=== PATIENT | male | born 1990 | race Caucasian/White ===

== ENCOUNTER 2023-02-02 22:03 | Observation (INO) | payer BC, SELFPAY ==
--- NOTE | ~2023-02-02 | CT_ITS ---
EXAMINATION: CT ABDOMEN AND PELVIS WITHOUT CONTRAST CLINICAL INFORMATION: Right flank pain, question stone COMPARISON: None available. TECHNIQUE: Multidetector volumetric imaging was performed from the superior aspect of the liver through the pubic symphysis. Sagittal and coronal reformatted images were obtained on the technologist's workstation. This CT examination was performed using dose optimization techniques as appropriate, variously including the following: *Automated exposure control *Adjustment of mA and/or kV according to patient size (this includes techniques or standardized protocols for targeted exams where dose is matched to indication/reason for exam; i.e. extremities or head) *Use of iterative reconstruction technique DLP: 669 mGy-cm FINDINGS: LUNG BASES: The visualized lung bases are unremarkable. LIVER, GALLBLADDER, AND BILIARY TREE: The liver is normal in size, shape, and attenuation. No focal hepatic lesion or biliary ductal dilatation is identified. Proximal gallstone is noted. No significant gallbladder wall thickening or surrounding inflammation. PANCREAS: Unremarkable. SPLEEN: Unremarkable. ADRENAL GLANDS: Unremarkable. KIDNEYS AND URETERS: No hydronephrosis or obstructing calculus bilaterally. BLADDER: Unremarkable. GASTROINTESTINAL TRACT: The stomach is distended with fluid and debris. No evidence of bowel obstruction or significant wall thickening. The appendix is unremarkable. No free fluid or free air is seen. ABDOMINAL WALL: No significant hernia is appreciated. LYMPH NODES: Normal. VASCULAR: Unremarkable. PELVIC VISCERA: Unremarkable. OSSEOUS STRUCTURES: Disc protrusion noted at L5-S1. CT/CT abdomen pelvis wo IV con IMPRESSION: 1. No hydronephrosis or obstructing calculus. 2. Cholelithiasis. If there is clinical concern for cholecystitis, this would be better assessed with ultrasound.
--- NOTE | ~2023-02-02 | US_ITS ---
EXAMINATION: US ABDOMEN LIMITED CLINICAL INFORMATION: Gallstones, question cholecystitis. COMPARISON: CT 02/02/2023 TECHNIQUE: Real-time imaging of the right upper quadrant abdominal viscera. FINDINGS: PANCREAS: Not visualized, obscured by overlying bowel gas. LIVER: The liver is normal in size. The liver contour is normal. Parenchymal echogenicity is normal. No focal hepatic lesion. There is no intrahepatic biliary duct dilatation seen. GALLBLADDER: There is a nonmobile gallstone in the gallbladder neck measuring up to 1.4 cm. Gallbladder wall thickness is within normal limits. No pericholecystic fluid is seen. Right upper quadrant tenderness was reported during the exam. COMMON BILE DUCT: Normal in caliber measuring 0.3 cm in diameter. RIGHT KIDNEY: No hydronephrosis. No renal calculi or focal parenchymal lesions. The kidney measures 12.2 cm in maximum dimension. FREE FLUID: None. US/US abdomen limited IMPRESSION: Nonmobile gallstone in the gallbladder neck. Right upper quadrant tenderness was reported during the exam. Though no gallbladder wall thickening is seen, early acute cholecystitis remains a possibility. If clinically warranted, assessment for cystic duct patency could be performed with nuclear medicine hepatobiliary scan.
--- NOTE | 2023-02-02 22:19 | ED_ITS ---
HPI - Abdominal Pain General Chief Complaint: Abdominal Pain Stated Complaint: abd pain, difficulty breathing Time Seen by Provider: 02/02/23 22:19 Source: patient Mode of arrival: ambulatory Limitations: no limitations History of Present Illness HPI narrative: Patient with no significant past medical history apparently had fried food earlier today came with severe pain in the right flank and right upper quadrant area for last 2 hours , with nausea patient was very tremulous anxious diaphoretic patient milder pain like this few months ago never been evaluated no fever no chills no urinary complaints no hematuria Related Data Previous Rx's Medication Instructions Recorded ondansetron 4 mg disintegrating 4 mg PO Q6-8H PRN nausea and 02/03/23 tablet vomiting #7 tabs oxycodone 5 mg tablet 5 mg PO Q6H PRN pain #20 tabs 02/03/23 Allergies Allergy/AdvReac Type Severity Reaction Status Date / Time No Known Allergies Allergy Verified 02/02/23 22:21 Review of Systems Review of Systems Yes all other systems are reviewed and are negative [facility] Social History Social History Advance Directives: No Advance Directives Information Provided: Yes Physical Exam ED Vital Signs: Vital Signs - 24 hr 02/02/23 22:43 02/02/23 23:44 Temperature 98.9 F Pulse Rate 76 68 Respiratory Rate 22 H 17 Blood Pressure 148/108 H 123/71 Pulse Oximetry 96 98 Oxygen Delivery Method Room Air Nasal Cannula Oxygen Flow Rate 2 BMI result Body Mass Index 31.5 Appearance: Alert. Oriented X3. Patient has severe distress diaphoretic. Eyes: No pallor or icterus ENT: Pharynx normal. Oral Mucosa moist Neck: Normal inspection. Neck supple. CVS: Normal heart rate and rhythm. Pulses normal. Respiratory: No respiratory distress. Equal air entry bilateral, no wheezing/rales/rhonchi Abdomen: Soft tender right upper quadrant and right flank area Bowel sounds are present, no mass palpable, no CVA tenderness Skin: Skin warm and dry. Normal skin color. Normal skin turgor. Extremities: No lower extremity edema. No calf tenderness Neuro: Oriented X 3. No motor deficit. Medical Decision Making Medical Decision Making MDM Narrative: Patient with cholelithiasis with Clayton sign positive feeling much better at this time sleeping will get ultrasound to rule out acute cholecystitis as patient had a slightly elevated WBC count and lactic acid level likely type B Dr. Velasco will re-evaluate the patient after ultrasound Lab Data MDM Lab Attestation statement: I reviewed the patient's lab results. 02/02/23 22:31 02/02/23 22:31 Labs: Lab Results 02/02/23 02/02/23 02/02/23 Range/Units 22:31 22:31 22:31 WBC 11.3 H (4.8-10.8) X10*3/uL RBC 5.54 (4.60-5.80) X10*6/uL Hgb 15.9 (14.0-18.0) g/dl Hct 46.5 (42.0-52.0) % MCV 83.9 (80.0-98.0) fL MCH 28.7 (27.0-33.0) pg MCHC 34.2 (31.0-36.0) g/dl RDW 12.6 (11.0-16.0) % Plt Count 314 (160-400) X10*3/uL MPV 10.5 (9.4-12.4) fL Immature Gran % (Auto) 0.5 H (0.0-0.4) % Neut % (Auto) 41.6 L (45-73) % Lymph % (Auto) 43.5 H (20-40) % [place] % (Auto) 10.1 (2-11) % Eos % (Auto) 3.6 (0-4) % Baso % (Auto) 0.7 (0-2) % Lymph # (Auto) 4.9 (1.2-4.9) X10*3/uL [place] # (Auto) 1.1 (0.1-1.2) X10*3/uL Eos # (Auto) 0.4 (0.0-0.4) X10*3/uL Baso # (Auto) 0.1 (0.0-0.2) X10*3/uL Abs Immat Gran (auto) 0.06 H (0.00-0.03) X10*3/uL Absolute Neuts (auto) 4.7 (2.0-8.3) x10*3/uL Absolute Nucleated RBC 0.000 (0.0-0.012) X10*3/uL Nucleated RBC % (auto) 0.0 (0.0-0.2) /100WBC Sodium 141 (135-145) mmol/L Potassium 4.1 (3.3-5.1) mmol/L Chloride 104 (96-108) mmol/L Carbon Dioxide 26 (22-29) mmol/L Anion Gap 15 (12-20) BUN 16 (9-16) mg/dL Creatinine 1.05 (0.5-1.4) mg/dL Estim Creat Clear Calc 120.7 Estimated GFR > 60 Random Glucose 112 (60-115) mg/dL Lactic Acid 3.2 H* (0.5-2.0) mmol/L Lactic Acid F/U @ 2Hr (0.5-2.0) mmol/L Calcium 10.1 (8.4-10.2) mg/dL Total Bilirubin 0.5 (0.0-1.0) mg/dL AST 20 (5-37) U/L ALT 31 (0-40) U/L Alkaline Phosphatase 68 (39-117) U/L Total Protein 7.8 (6.5-8.0) g/dL Albumin 4.8 (3.5-5.0) g/dL Lipase 27 (8-78) U/L 02/03/23 Range/Units 00:58 WBC (4.8-10.8) X10*3/uL RBC (4.60-5.80) X10*6/uL Hgb (14.0-18.0) g/dl Hct (42.0-52.0) % MCV (80.0-98.0) fL MCH (27.0-33.0) pg MCHC (31.0-36.0) g/dl RDW (11.0-16.0) % Plt Count (160-400) X10*3/uL MPV (9.4-12.4) fL Immature Gran % (Auto) (0.0-0.4) % Neut % (Auto) (45-73) % Lymph % (Auto) (20-40) % [place] % (Auto) (2-11) % Eos % (Auto) (0-4) % Baso % (Auto) (0-2) % Lymph # (Auto) (1.2-4.9) X10*3/uL [place] # (Auto) (0.1-1.2) X10*3/uL Eos # (Auto) (0.0-0.4) X10*3/uL Baso # (Auto) (0.0-0.2) X10*3/uL Abs Immat Gran (auto) (0.00-0.03) X10*3/uL Absolute Neuts (auto) (2.0-8.3) x10*3/uL Absolute Nucleated RBC (0.0-0.012) X10*3/uL Nucleated RBC % (auto) (0.0-0.2) /100WBC Sodium (135-145) mmol/L Potassium (3.3-5.1) mmol/L Chloride (96-108) mmol/L Carbon Dioxide (22-29) mmol/L Anion Gap (12-20) BUN (9-16) mg/dL Creatinine (0.5-1.4) mg/dL Estim Creat Clear Calc Estimated GFR Random Glucose (60-115) mg/dL Lactic Acid (0.5-2.0) mmol/L Lactic Acid F/U @ 2Hr 1.1 (0.5-2.0) mmol/L Calcium (8.4-10.2) mg/dL Total Bilirubin (0.0-1.0) mg/dL AST (5-37) U/L ALT (0-40) U/L Alkaline Phosphatase (39-117) U/L Total Protein (6.5-8.0) g/dL Albumin (3.5-5.0) g/dL Lipase (8-78) U/L Radiology Impression Discussion of test interpretation with radiology: I have reviewed the r adiologist's reading. Radiologist Impression: CT/CT abdomen pelvis wo IV con IMPRESSION: 1.? No hydronephrosis or obstructing calculus. 2.? Cholelithiasis. If there is clinical concern for cholecystitis, this would be better assessed with ultrasound. Medications Administered Discontinued Medications Generic Name Dose Route Start Last Admin Trade Name Freq PRN Reason Stop Dose Admin Hydromorphone HCl 2 mg 02/02/23 22:51 02/02/23 22:55 Hydromorphone Hcl 2 Mg/Ml Vial IVPUSH 02/02/23 22:52 2 mg ONCE ONE Administration Protocol Sodium Chloride 1,000 mls @ 999 mls/hr 02/02/23 22:20 02/02/23 23:36 Ns IV 02/02/23 23:20 Infused .Q1H1M ONE Infusion Sodium Chloride 1,000 mls @ 999 mls/hr 02/02/23 22:51 02/03/23 00:34 Ns IV 02/02/23 23:51 Infused .Q1H1M ONE Infusion Ketorolac Tromethamine 30 mg 02/02/23 22:20 02/02/23 22:28 Ketorolac Tromethamine 30 Mg/Ml Vial IVPUSH 02/02/23 22:21 30 mg ONCE ONE Administration Morphine Sulfate 4 mg 02/02/23 22:20 02/02/23 22:27 Morphine Sulfate 4 Mg/Ml Cartridge IVPUSH 02/02/23 22:21 4 mg ONCE ONE Administration Protocol Discharge Plan Discharge Clinical Impression: Biliary colic Patient Disposition: Still a Patient Prescriptions: New ondansetron 4 mg tablet,disintegrating 4 mg PO Q6-8H PRN (Reason: nausea and vomiting) Qty: 7 0RF oxycodone 5 mg tablet 5 mg PO Q6H PRN (Reason: pain) Qty: 20 0RF Rx Instructions: Partial Fill upon patient request.
[2023-02-02 22:21] VITALS: BMI 31.5
[2023-02-02] MEDS: Morphine Sulfate 4 MG/ML CARTRIDGE IVPUSH (22:27)
[2023-02-02] MEDS: Ketorolac Tromethamine 30 MG/ML VIAL IVPUSH (22:28)
[2023-02-02] MEDS: 0.9 % Sodium Chloride 1,000 ML 999 ML IV ×2 (22:28→23:26)
[2023-02-02 22:37] LABS: MANUAL DIFF FLAG NO
[2023-02-02 22:43] VITALS: BP 148/108; PULSE 76; RESP 22; TEMP 37.2; O2SAT 96
[2023-02-02 22:47] LABS: Basophils Absolute Auto 0.1 X10*3/uL (0.0-0.2); Basophils Percent Auto 0.7 % (0-2); Eosinophils Absolute Auto 0.4 X10*3/uL (0.0-0.4); Eosinophils Percent Auto 3.6 % (0-4); Hematocrit 46.5 % (42.0-52.0); Hemoglobin 15.9 g/dl (14.0-18.0); Imm Gran Abs Auto 0.06 X10*3/uL (0.00-0.03); Imm Gran Pct Auto 0.5 % (0.0-0.4); Lymphocytes Absolute Auto 4.9 X10*3/uL (1.2-4.9); Lymphocytes Percent Auto 43.5 % (20-40); Mean Corpuscular HGB Conc 34.2 g/dl (31.0-36.0); Mean Corpuscular Hemoglobin 28.7 pg (27.0-33.0); Mean Corpuscular Volume 83.9 fL (80.0-98.0); Mean Platelet Volume 10.5 fL (9.4-12.4); Monocytes Absolute Auto 1.1 X10*3/uL (0.1-1.2); Monocytes Percent Auto 10.1 % (2-11); Neutrophils Absolute Auto 4.7 x10*3/uL (2.0-8.3); Neutrophils Percent Auto 41.6 % (45-73); Platelet Count 314 X10*3/uL (160-400); Red Blood Count 5.54 X10*6/uL (4.60-5.80); Red Cell Distribution Width 12.6 % (11.0-16.0); White Blood Count 11.3 X10*3/uL (4.8-10.8)
[2023-02-02 22:51] LABS: Lactic Acid 3.2 mmol/L (0.5-2.0)
[2023-02-02 22:54] LABS: Alanine Aminotransferase 31 U/L (0-40); Albumin Level 4.8 g/dL (3.5-5.0); Alkaline Phosphatase 68 U/L (39-117); Anion Gap 15 (12-20); Aspartate Amino Transferase 20 U/L (5-37); Bilirubin Total 0.5 mg/dL (0.0-1.0); Blood Urea Nitrogen 16 mg/dL (9-16); Calcium 10.1 mg/dL (8.4-10.2); Carbon Dioxide 26 mmol/L (22-29); Chloride 104 mmol/L (96-108); Creatinine Clr Calc Pharmacy 120.7; Estimated Glomerular Filt Rate > 60; Glucose Random 112 mg/dL (60-115); Lipase 27 U/L (8-78); Potassium 4.1 mmol/L (3.3-5.1); Sodium 141 mmol/L (135-145); Total Protein 7.8 g/dL (6.5-8.0)
[2023-02-02] MEDS: HYDROmorphone HCl 2 MG/ML VIAL IVPUSH (22:55)
--- NOTE | 2023-02-02 23:43 | MHC.EDTECH ---
pt o2 desatted to mid 80s when asleep after being medicated. t/w elevated head of bed and placed patient on 2L o2 nasal cannula. md jean-baptiste aware. rn aware
[2023-02-02 23:44] VITALS: BP 123/71; PULSE 68; RESP 17; O2SAT 98
[2023-02-03] VITALS (11 sets, daily range): BP systolic 110–143; BP diastolic 53–88; PULSE 55–79; RESP 13–20; TEMP 36–36.8; O2SAT 96–98; BMI 33.1
[2023-02-03 00:37] LABS: Reflex Lactate? Lactic Acid Added
[2023-02-03 01:17] LABS: ~Lactic Acid-LAB USE ONLY 1.1 mmol/L (0.5-2.0)
[2023-02-03] MEDS: ondansetron HCL 4 MG/2 ML VIAL IVPUSH (03:46)
[2023-02-03 03:58] LABS: Appearance Urine Clear; Color Urine Yellow; Glucose Urine UA Negative (Negative); Leukocyte Esterase Urine Negative (Negative); Nitrite Urine Negative (Negative); Urine Blood Negative (Negative); Urine Ketones Negative (Negative); Urine Protein Negative (Neg-Trace)
[2023-02-03] MEDS: cefTRIAXone sodium 1 GM in 0.9 % Sodium Chloride 100 ML IV (04:39)
[2023-02-03 05:00] LABS: Lactic Acid 1.8 mmol/L (0.5-2.0)
[2023-02-03 05:00] LABS: COVID-19 Test Negative (Negative); IDNOW Serial# 6674DD1D
[2023-02-03] MEDS: Dextrose 5 % and Lactated Ring 1,000 ML 125 ML IVCONT ×3 (05:08→20:03)
--- NOTE | 2023-02-03 05:16 | PC.NURSE ---
pt sleeping comfortably on stretcher, 97% on RA. call foster within reach. will CTM
--- NOTE | 2023-02-03 06:34 | PC.NURSE ---
Pt came from the Ed at 0615 per stretcher, alert, was feeling no pain before transfer to bed, felt some cramping pain 4/10 mid abd after bending forward, oriented to the unit and use of callbell, safety measures instructed, NPO with ice chips and meds reiterated, IVF maintained.
--- NOTE | 2023-02-03 07:58 | PM.HPGS ---
History of Present Illness History of Present Illness Date of Service: 02/03/23 Chief complaint: acute cholecystitis Narrative: Tashi Bynum is a 32 year old male presenting with complaints of abdominal pain, nausea and vomiting. He reports eating fried mozzarella sticks at around 6 pm yesterday. Several hours later, he developed severe right upper quadrant abdominal pain. He subsequently developed nausea and vomiting which did not relieve the pain. He reports a similar episode 6 years ago; he was admitted but the cause of the pain was never determined. He also reports chronic reflux symptoms which have not improved with various OTC meds. He presented to the ED last evening and was noted to have a mildly elevated WBC. CT and ultrasound revealed an impacted gallstone at the neck of the GB, without evidence of wall thickening or pericholecystic fluid. He was tender over the gallbladder when compressed with the ultrasound probe. Review of Systems Review of Systems: Yes all other systems are reviewed and are negative Constitutional: Constitutional: Denies chills, Denies fever(s), Denies headache(s), Denies poor appetite and Denies weakness ENT: Denies headache(s) Cardiovascular: Cardiovascular: Denies chest pain, Denies irregular heart rhythm, Denies palpitations and Denies dyspnea Respiratory: Respiratory: Denies cough, Denies excessive phlegm production and Denies dyspnea Gastrointestinal: Gastrointestinal: Reports abdominal pain, Denies bloating, Denies change in bowel habits, Denies constipation, Denies heartburn, Denies diarrhea, Reports nausea and Reports vomiting Genitourinary: Genitourinary: Denies difficulty urinating and Denies urinary frequency Musculoskeletal: Musculoskeletal: Denies back pain, Denies muscle weakness and Denies numbness Integumentary/Breasts: Skin/Breast: Denies changing lesions and Denies unusual bruising Neurologic: Denies headache(s), Denies numbness, Denies paresthesias and Denies weakness Psychiatric: Psychiatric: Denies anxiety and Denies depression Endocrine: Endocrine: Denies palpitations Hematologic/Lymphatic: Hematologic/Lymphatic: Denies lymphadenopathy PMFSH Past Medical History Medical History Acid reflux Social History Social History Household Members: Spouse, Family and Children Housing: House Do you presently have visiting nurse or other home services: No Patient Tobacco Use Status: Never used Tobacco Use of substances other than those prescribed or required for medical reasons: No Have you been hit, kicked, punched, or otherwise hurt by someone within the past year? If so, by whom?: No Do you feel safe in your current relationship?: Yes Is there a partner from a previous relationship who is making you feel unsafe now?: No Are you made to feel afraid or neglected: No Advance Directives: No Advance Directives Information Provided: Yes Do you have thoughts of harming others: None Do you have a plan to hurt others: No Plan Recently lost weight without trying: No How much weight loss: Unsure Eating poorly because of decreased appetite: No Nutrition screen score: 2 Nutrition Risks: No Nutritional Risk Poor oral hygiene: No Meds Allergies Allergy/AdvReac Type Severity Reaction Status Date / Time No Known Allergies Allergy Verified 02/02/23 22:21 Active Medications: Current Medications Hydromorphone HCl (Hydromorphone Hcl 0.5 Mg/0.5 Ml Syringe) 0.5 mg IVPUSH Q3H PRN; Protocol PRN Reason: Pain, Severe (Pain Scale 7-10) Dextrose/Lactated Ringer's (D5lr) 1,000 mls @ 125 mls/hr IVCONT .Q8H [facility] Last Admin: 02/03/23 05:08 Dose: 125 mls/hr Ondansetron HCl (Ondansetron Hcl 4 Mg/2 Ml Vial) 4 mg IVPUSH QID PRN PRN Reason: Nausea Pharmacy Consult (Consult Rx Perform Med Rec) 1 each MISCELLANE ONCE PRN PRN Reason: Consult order Sodium Chloride (0.9 % Sodium Chloride Flush 3 Ml Syringe) 3 ml IVFLUSH QSHIFT [facility] Last Admin: 02/03/23 07:40 Dose: Not Given Zolpidem Tartrate (Zolpidem Tartrate 5 Mg Tablet) 5 mg PO BEDTIME PRN PRN Reason: Insomnia Physical Exam Vital Signs: Vital Signs: Last Vital Signs Temp 97 F 02/03/23 06:59 Pulse 58 02/03/23 06:59 Resp 16 02/03/23 06:59 BP 115/58 L 02/03/23 06:59 Pulse Ox 98 02/03/23 06:59 O2 Del Method Room Air 02/03/23 06:59 O2 Flow Rate 2 02/02/23 23:44 BMI result Body Mass Index 33.1 Const: General: cooperative and no acute distress Nutritional Appearance: well nourished Orientation/consciousness: patient oriented x3 Limitations: no limitations HEENT: Head: Yes normocephalic and Yes atraumatic Ears: hearing grossly normal bilaterally Resp: Effort & Inspection: normal respiratory effort, no audible wheezes, no cough and no respiratory distress Cardio: Jugular venous distension: no JVD GI: Inspection: Yes normal to inspection Palpation (GI): Soft to palpation, Tenderness to palpation present (GI) in the RUQ and Clayton's sign positive, no guarding and not rigid Percussion: Yes normal to percussion Auscultation: normal bowel sounds Rectal Exam - Male: Yes deferred Skin: Other: Warm, dry, no rash Neuro: General: patient oriented x3 Extrem: General: Yes no clubbing, cyanosis or edema Results Results Labs: Short CBC 02/02/23 Range/Units 22:31 WBC 11.3 H (4.8-10.8) X10*3/uL Hgb 15.9 (14.0-18.0) g/dl Hct 46.5 (42.0-52.0) % Plt Count 314 (160-400) X10*3/uL BMP 02/02/23 22:31 Sodium 141 Potassium 4.1 Chloride 104 Carbon Dioxide 26 BUN 16 Creatinine 1.05 Calcium 10.1 Liver Function 02/02/23 Range/Units 22:31 Total Bilirubin 0.5 (0.0-1.0) mg/dL AST 20 (5-37) U/L ALT 31 (0-40) U/L Alkaline Phosphatase 68 (39-117) U/L Albumin 4.8 (3.5-5.0) g/dL Urine 02/03/23 Range/Units 03:51 Urine Color Yellow Urine Appearance Clear Urine pH 7.0 (5.0-9.0) Ur Specific [place] 1.020 (1.005-1.025) Urine Protein Negative (Neg-Trace) mg/dL Urine Glucose (UA) Negative (Negative) mg/dL Abdomen CT scan report/results: image reviewed Additional studies: US Abdomen reviewed Assessment and Plan (1) Cholecystitis, acute with cholelithiasis: Status: Acute Plan 32 year old male with an acute onset of abdominal pain in the right upper quadrant, associated with fatty food intact. Patient found to have a mild increase in the WBC and an impacted gallstone in the neck of the gallbladder. On exam, he is tender in the RUQ with a positive Clayton's sign. Findings are suggestive of acute cholecystitis due to cholelithiasis. I recommended a laparoscopic or possible open cholecystectomy. After a discussion of the procedure, alternatives and risks, he consents to the Laparoscopic or possible open cholecystectomy. Time Spent With Patient Time: Total time managing care of this patient today ____ minutes. Quality Stroke Does the patient have a stroke diagnosis?: No VTE Prior VTE?: No VTE Risk Level:: Surgical - moderate VTE Device Contraindication: N/A - Device Ordered VTE Drug Contraindication: Treatment Not Indicated Procedures Date of Service Date of Service: 02/03/23
--- NOTE | 2023-02-03 08:44 | PHA.MEDREC ---
Addendum entered by Breanna Myers RPh 02/03/23 09:38: kenyatta has reviewed med rec Original Note: Pharmacy Consult ? Medication Reconciliation Pharmacy has completed the medication reconciliation. Spoke to patient to confirm meds.
--- NOTE | 2023-02-03 09:16 | HO.ANESPROP2 ---
[facility] Active Problems Active Problems: All Active Problems (Updated 02/03/23 @ 08:07 by Eloy Lennon MD) Cholecystitis, acute with cholelithiasis (Acute) Biliary colic (Acute) Past Medical History Medical History Acid reflux Functional capacity: independent ambulation Family History Family history of problems with anesthesia: No Social History Social History Household Members: Spouse, Family and Children Housing: House Do you presently have visiting nurse or other home services: No Patient Tobacco Use Status: Never used Tobacco Use of substances other than those prescribed or required for medical reasons: No Currently Displaying Signs/Symptoms of Drug Intoxication Withdrawal: No Have you been hit, kicked, punched, or otherwise hurt by someone within the past year? If so, by whom?: No Do you feel safe in your current relationship?: Yes Is there a partner from a previous relationship who is making you feel unsafe now?: No Are you made to feel afraid or neglected: No Advance Directives: No Advance Directives Information Provided: Yes Do you have thoughts of harming others: None Do you have a plan to hurt others: No Plan Recently lost weight without trying: No How much weight loss: Unsure Eating poorly because of decreased appetite: No Nutrition screen score: 2 Nutrition Risks: No Nutritional Risk Poor oral hygiene: No Meds Allergies Allergy/AdvReac Type Severity Reaction Status Date / Time No Known Allergies Allergy Verified 02/02/23 22:21 Active Medications: Current Medications Hydromorphone HCl (Hydromorphone Hcl 0.5 Mg/0.5 Ml Syringe) 0.5 mg IVPUSH Q3H PRN; Protocol PRN Reason: Pain, Severe (Pain Scale 7-10) Dextrose/Lactated Ringer's (D5lr) 1,000 mls @ 125 mls/hr IVCONT .Q8H [facility] Last Admin: 02/03/23 05:08 Dose: 125 mls/hr Cefotetan Disodium 2 gm/ (Sodium Chloride) 50 mls @ 100 mls/hr IV PREOP ONE Stop: 02/03/23 09:37 Ondansetron HCl (Ondansetron Hcl 4 Mg/2 Ml Vial) 4 mg IVPUSH QID PRN PRN Reason: Nausea Pharmacy Consult (Consult Rx Perform Med Rec) 1 each MISCELLANE ONCE PRN PRN Reason: Consult order Sodium Chloride (0.9 % Sodium Chloride Flush 3 Ml Syringe) 3 ml IVFLUSH [facility]SHIFT [facility] Last Admin: 02/03/23 07:40 Dose: Not Given Zolpidem Tartrate (Zolpidem Tartrate 5 Mg Tablet) 5 mg PO BEDTIME PRN PRN Reason: Insomnia Home Medications Medication Instructions Recorded Confirmed Last Taken Type calcium carbonate 500 mg calcium 500 mg PO DAILY PRN Heartburn 02/03/23 02/03/23 02/02/23 History (1,250 mg) chewable tablet multivitamin 1 tab PO DAILY 02/03/23 02/03/23 02/02/23 History Exam Exam Date and Time: February 03, [id number] Height,Weight and Vital Signs: Height 5 ft 10 in Weight 104.7 kg Last Vital Signs Temp 97 F 02/03/23 06:59 Pulse 58 02/03/23 06:59 Resp 16 02/03/23 06:59 BP 115/58 L 02/03/23 06:59 Pulse Ox 98 02/03/23 06:59 O2 Del Method Room Air 02/03/23 06:59 O2 Flow Rate 2 02/02/23 23:44 Pertinent Lab Results Pertinent Lab Results: Laboratory Tests 02/02/23 02/02/23 02/02/23 22:31 22:31 22:31 WBC 11.3 H RBC 5.54 Hgb 15.9 Hct 46.5 MCV 83.9 MCH 28.7 MCHC 34.2 RDW 12.6 Plt Count 314 MPV 10.5 Immature Gran % (Auto) 0.5 H Neut % (Auto) 41.6 L Lymph % (Auto) 43.5 H [place] % (Auto) 10.1 Eos % (Auto) 3.6 Baso % (Auto) 0.7 Lymph # (Auto) 4.9 [place] # (Auto) 1.1 Eos # (Auto) 0.4 Baso # (Auto) 0.1 Abs Immat Gran (auto) 0.06 H Absolute Neuts (auto) 4.7 Absolute Nucleated RBC 0.000 Nucleated RBC % (auto) 0.0 Sodium 141 Potassium 4.1 Chloride 104 Carbon Dioxide 26 Anion Gap 15 BUN 16 Creatinine 1.05 Estim Creat Clear Calc 120.7 Estimated GFR > 60 Random Glucose 112 Lactic Acid 3.2 H* Lactic Acid F/U @ 2Hr Calcium 10.1 Total Bilirubin 0.5 AST 20 ALT 31 Alkaline Phosphatase 68 Total Protein 7.8 Albumin 4.8 Lipase 27 Urine Color Urine Appearance Urine pH Ur Specific [place] Urine Protein Urine Glucose (UA) Urine Ketones Urine Blood Urine Nitrite Ur Leukocyte Esterase COVID-19 ([facility]) COVID-19 Clin Com 02/03/23 02/03/23 02/03/23 00:58 03:51 04:30 WBC RBC Hgb Hct MCV MCH MCHC RDW Plt Count MPV Immature Gran % (Auto) Neut % (Auto) Lymph % (Auto) [place] % (Auto) Eos % (Auto) Baso % (Auto) Lymph # (Auto) [place] # (Auto) Eos # (Auto) Baso # (Auto) Abs Immat Gran (auto) Absolute Neuts (auto) Absolute Nucleated RBC Nucleated RBC % (auto) Sodium Potassium Chloride Carbon Dioxide Anion Gap BUN Creatinine Estim Creat Clear Calc Estimated GFR Random Glucose Lactic Acid Lactic Acid F/U @ 2Hr 1.1 Calcium Total Bilirubin AST ALT Alkaline Phosphatase Total Protein Albumin Lipase Urine Color Yellow Urine Appearance Clear Urine pH 7.0 Ur Specific [place] 1.020 Urine Protein Negative Urine Glucose (UA) Negative Urine Ketones Negative Urine Blood Negative Urine Nitrite Negative Ur Leukocyte Esterase Negative COVID-19 ([facility]) Negative COVID-19 [facility] Com See Note 02/03/23 04:35 WBC RBC Hgb Hct MCV MCH MCHC RDW Plt Count MPV Immature Gran % (Auto) Neut % (Auto) Lymph % (Auto) [place] % (Auto) Eos % (Auto) Baso % (Auto) Lymph # (Auto) [place] # (Auto) Eos # (Auto) Baso # (Auto) Abs Immat Gran (auto) Absolute Neuts (auto) Absolute Nucleated RBC Nucleated RBC % (auto) Sodium Potassium Chloride Carbon Dioxide Anion Gap BUN Creatinine Estim Creat Clear Calc Estimated GFR Random Glucose Lactic Acid 1.8 Lactic Acid F/U @ 2Hr Calcium Total Bilirubin AST ALT Alkaline Phosphatase Total Protein Albumin Lipase Urine Color Urine Appearance Urine pH Ur Specific [place] Urine Protein Urine Glucose (UA) Urine Ketones Urine Blood Urine Nitrite Ur Leukocyte Esterase COVID-19 ([facility]) COVID-19 Clin Com Airway Mallampati Class: II TM Dist: >3cm Neck ROM: Full Heart: RRR Lungs: CTA Assessment and Plan Final Anesthetic Review Family History of Problems with Anesthesia: No NPO: Yes ASA Class: II Final Preanesthetic Review: Meds/Sharon Chart Reviewed and Consent Obtained/Reviewed Patient Risk: Intermediate Procedure Risk: Intermediate Anesthetic Plan Anesthetic Plan: GA Disposition: Standard PACU
--- NOTE | 2023-02-03 09:37 | HO.ANESPROP2 ---
ON LICENSE OF [facility] Active Problems Active Problems: All Active Problems (Updated 02/03/23 @ 08:07 by Eloy Lennon MD) Cholecystitis, acute with cholelithiasis (Acute) Biliary colic (Acute) Past Medical History Medical History Acid reflux Functional capacity: independent ambulation Family History Family history of problems with anesthesia: No Surgical History History of Problems with Anesthesia: No Social History Social History Household Members: Spouse, Family and Children Housing: House Do you presently have visiting nurse or other home services: No Patient Tobacco Use Status: Never used Tobacco Use of substances other than those prescribed or required for medical reasons: No Currently Displaying Signs/Symptoms of Drug Intoxication Withdrawal: No Have you been hit, kicked, punched, or otherwise hurt by someone within the past year? If so, by whom?: No Do you feel safe in your current relationship?: Yes Is there a partner from a previous relationship who is making you feel unsafe now?: No Are you made to feel afraid or neglected: No Advance Directives: No Advance Directives Information Provided: Yes Do you have thoughts of harming others: None Do you have a plan to hurt others: No Plan Recently lost weight without trying: No How much weight loss: Unsure Eating poorly because of decreased appetite: No Nutrition screen score: 2 Nutrition Risks: No Nutritional Risk Poor oral hygiene: No Meds Allergies Allergy/AdvReac Type Severity Reaction Status Date / Time No Known Allergies Allergy Verified 02/02/23 22:21 Active Medications: Current Medications Hydromorphone HCl (Hydromorphone Hcl 0.5 Mg/0.5 Ml Syringe) 0.5 mg IVPUSH Q3H PRN; Protocol PRN Reason: Pain, Severe (Pain Scale 7-10) Dextrose/Lactated Ringer's (D5lr) 1,000 mls @ 125 mls/hr IVCONT .Q8H DARIN Last Admin: 02/03/23 05:08 Dose: 125 mls/hr Ondansetron HCl (Ondansetron Hcl 4 Mg/2 Ml Vial) 4 mg IVPUSH QID PRN PRN Reason: Nausea Pharmacy Consult (Consult Rx Perform Med Rec) 1 each MISCELLANE ONCE PRN PRN Reason: Consult order Sodium Chloride (0.9 % Sodium Chloride Flush 3 Ml Syringe) 3 ml IVFLUSH QSHIFT [facility] Last Admin: 02/03/23 07:40 Dose: Not Given Zolpidem Tartrate (Zolpidem Tartrate 5 Mg Tablet) 5 mg PO BEDTIME PRN PRN Reason: Insomnia Home Medications Medication Instructions Recorded Confirmed Last Taken Type calcium carbonate 500 mg calcium 500 mg PO DAILY PRN Heartburn 02/03/23 02/03/23 02/02/23 History (1,250 mg) chewable tablet multivitamin 1 tab PO DAILY 02/03/23 02/03/23 02/02/23 History Exam Exam Date and Time: February 03, 2023 0937 Height,Weight and Vital Signs: Height 5 ft 10 in Weight 104.7 kg Last Vital Signs Temp 97 F 02/03/23 06:59 Pulse 58 02/03/23 06:59 Resp 16 02/03/23 06:59 BP 115/58 L 02/03/23 06:59 Pulse Ox 98 02/03/23 06:59 O2 Del Method Room Air 02/03/23 06:59 O2 Flow Rate 2 02/02/23 23:44 Pertinent Lab Results Pertinent Lab Results: Laboratory Tests 02/02/23 02/02/23 02/02/23 22:31 22:31 22:31 WBC 11.3 H RBC 5.54 Hgb 15.9 Hct 46.5 MCV 83.9 MCH 28.7 MCHC 34.2 RDW 12.6 Plt Count 314 MPV 10.5 Immature Gran % (Auto) 0.5 H Neut % (Auto) 41.6 L Lymph % (Auto) 43.5 H [place] % (Auto) 10.1 Eos % (Auto) 3.6 Baso % (Auto) 0.7 Lymph # (Auto) 4.9 [place] # (Auto) 1.1 Eos # (Auto) 0.4 Baso # (Auto) 0.1 Abs Immat Gran (auto) 0.06 H Absolute Neuts (auto) 4.7 Absolute Nucleated RBC 0.000 Nucleated RBC % (auto) 0.0 Sodium 141 Potassium 4.1 Chloride 104 Carbon Dioxide 26 Anion Gap 15 BUN 16 Creatinine 1.05 Estim Creat Clear Calc 120.7 Estimated GFR > 60 Random Glucose 112 Lactic Acid 3.2 H* Lactic Acid F/U @ 2Hr Calcium 10.1 Total Bilirubin 0.5 AST 20 ALT 31 Alkaline Phosphatase 68 Total Protein 7.8 Albumin 4.8 Lipase 27 Urine Color Urine Appearance Urine pH Ur Specific [place] Urine Protein Urine Glucose (UA) Urine Ketones Urine Blood Urine Nitrite Ur Leukocyte Esterase COVID-19 ([facility]) COVID-19 Clin Com 02/03/23 02/03/23 02/03/23 00:58 03:51 04:30 WBC RBC Hgb Hct MCV MCH MCHC RDW Plt Count MPV Immature Gran % (Auto) Neut % (Auto) Lymph % (Auto) [place] % (Auto) Eos % (Auto) Baso % (Auto) Lymph # (Auto) [place] # (Auto) Eos # (Auto) Baso # (Auto) Abs Immat Gran (auto) Absolute Neuts (auto) Absolute Nucleated RBC Nucleated RBC % (auto) Sodium Potassium Chloride Carbon Dioxide Anion Gap BUN Creatinine Estim Creat Clear Calc Estimated GFR Random Glucose Lactic Acid Lactic Acid F/U @ 2Hr 1.1 Calcium Total Bilirubin AST ALT Alkaline Phosphatase Total Protein Albumin Lipase Urine Color Yellow Urine Appearance Clear Urine pH 7.0 Ur Specific [place] 1.020 Urine Protein Negative Urine Glucose (UA) Negative Urine Ketones Negative Urine Blood Negative Urine Nitrite Negative Ur Leukocyte Esterase Negative COVID-19 ([facility]) Negative COVID-19 Moerae Matrix See Note 02/03/23 04:35 WBC RBC Hgb Hct MCV MCH MCHC RDW Plt Count MPV Immature Gran % (Auto) Neut % (Auto) Lymph % (Auto) [place] % (Auto) Eos % (Auto) Baso % (Auto) Lymph # (Auto) [place] # (Auto) Eos # (Auto) Baso # (Auto) Abs Immat Gran (auto) Absolute Neuts (auto) Absolute Nucleated RBC Nucleated RBC % (auto) Sodium Potassium Chloride Carbon Dioxide Anion Gap BUN Creatinine Estim Creat Clear Calc Estimated GFR Random Glucose Lactic Acid 1.8 Lactic Acid F/U @ 2Hr Calcium Total Bilirubin AST ALT Alkaline Phosphatase Total Protein Albumin Lipase Urine Color Urine Appearance Urine pH Ur Specific [place] Urine Protein Urine Glucose (UA) Urine Ketones Urine Blood Urine Nitrite Ur Leukocyte Esterase COVID-19 ([facility]) COVID-19 [facility] [employer] Com Airway Mallampati Class: II TM Dist: >3cm Neck ROM: Full Heart: RRR Lungs: CTA Assessment and Plan Assessment Anesthesia Assessment: Anesthesia Plan Discussed Final Anesthetic Review Family History of Problems with Anesthesia: No History of Problems with Anesthesia: No NPO: Yes ASA Class: II Final Preanesthetic Review: Meds/Allgs Chart Reviewed, Consent Obtained/Reviewed and Anes Risks/Benef Reviewed Patient Risk: Intermediate Procedure Risk: Intermediate Anesthetic Plan Anesthetic Plan: GA Disposition: Standard PACU
--- NOTE | 2023-02-03 10:55 | W.PM.OPN ---
Operative Note Operative Note Date of Service: 02/03/23 Narrative: Preoperative diagnosis: Acute cholecystitis, cholelithiaisis Postoperative diagnosis: Same Procedure: Laparoscopic cholecystectomy Surgeon: Eloy Lennon MD Media Account Executive:Leslie Covington RN Anesthesia: General endotracheal Indications for procedure:32 year old male with pain in RUQ and impacted gallstone in gallbladder neck. Operative findings:Acutely inflamed and distended gallbladder with single gallstone in neck of gallbladder Specimen: gallbladder Estimated blood loss:5 mls Complications: none Procedure details: Patient was brought to the OR and placed in a supine position. After administering general anesthesia the patient's abdomen was prepped with ChloraPrep and draped in a sterile fashion. Local anesthesia consisting of 0.5% Sensorcaine without epinephrine was infiltrated in a periumbilical region. A 5 mm incision was made above the umbilicus in a transverse fashion. The Veress needle was then inserted while elevating abdominal cavity with towel clips. After positive drop test the abdomen was insufflated to a pressure of 15 mm of mercury. The Veress needle was then removed and a 5 mm trocar inserted. The camera was inserted in the abdomen explored. A 12 mm trocar was then placed in the epigastrium. Two 5 mm trocars placed in the right upper quadrant by the microbiology lab assistant. The patient was placed in reverse Trendelenburg positioning and rotated to the left. The gallbladder was grasped with the fundus and retracted cephalad by the microbiology lab assistant. The infundibulum was then grasped and retracted away from the liver bed, also by the microbiology lab assistant. The Dolphin dissected was then used by the surgeon to dissect the peritoneum off the infundibulum to reveal the junction with the cystic duct. Cystic artery was noted slightly medial and posterior to the cystic duct. After obtaining a critical view the cystic duct was doubly clipped and divided. The cystic artery was then doubly clipped and divided. The gallbladder was then dissected off the liver bed using electrocautery with an L hook. Hemostasis was assured all times using the electrocautery. When the gallbladder is completely dissected off the liver bed was placed in an Endo-Catch bag and brought out through the epigastric incision. The gallbladder was sent to pathology for further examination. The abdomen was then re-examined. The liver bed was irrigated and suctioned dry. No bleeding or bile leak could be identified. CO2 was then evacuated and all trocars removed. Fascia was closed at the epigastric incision using a [id number] 0 Polysorb suture. Skin was closed in all incisions using a subcuticular 4 0 Polysorb suture by both the surgeon and microbiology lab assistant. Sterile dressings consisting of Steri-Strips, 2 x 2 gauze, and Tegaderm were then applied. The patient tolerated the procedure well. Sponge instrument and needle counts reported as correct. The patient was transferred to PACU in stable condition.
--- NOTE | 2023-02-03 16:07 | MHC.CM.PN ---
CM MET WITH PT AND AT BEDSIDE PT LIVES WITH AND KIDS HE IS INDEPENDENT, HAS NO SERVICES AND NO DME HE GOES TO [facility] FOR PCP, DOES NOT KNOW PROVIDER NAME HE IS NOT COVID [facility] HE DECLINES TO COMPLETE A HCP OBS DELIVERED DCP: HOME NO SERVICES, FAMILY TO TRANSPORT
[2023-02-03] MEDS: Acetaminophen 325 MG TABLET 650 MG PO (20:04)
[2023-02-04 03:27] VITALS: BP 135/57; PULSE 63; RESP 16; TEMP 36.3; O2SAT 97
[2023-02-04] MEDS: Dextrose 5 % and Lactated Ring 1,000 ML 125 ML IVCONT (04:06)
[2023-02-04 07:10] VITALS: BP 114/66; PULSE 64; RESP 18; TEMP 36.6; O2SAT 98
--- NOTE | 2023-02-04 08:48 | PM.DS ---
DS: Providers Provider Date of Service: 02/04/23 Date of admission: 02/03/23 03:58 Date of discharge: 02/04/23 Primary care physician: Unknown Physician Admitting clinician: Eloy Lennon Discharging clinician: Eloy Lennon DS: Diagnosis Discharge Diagnosis (1) Cholecystitis, acute with cholelithiasis: Status: Acute DS: Summary Hospital Course Hospital Course: 32-year-old male patient presenting with complaints of abdominal pain in the right upper quadrant occurring several hours after eating fried mozzarella sticks. The pain increased in severity was associated with nausea and vomiting. He subsequently presented to the emergency department and was noted to be tender in the right upper quadrant. Subsequent workup with CT and ultrasound revealed an impacted gallstone at the neck of the gallbladder with no secondary signs of acute cholecystitis. He was subsequently admitted to the surgical service for further management. Patient was taken to the OR on 02/03/2023 for a laparoscopic or possible open cholecystectomy. Operative findings were consistent with acute cholecystitis due to cholelithiasis. Marked edema was noted in the gallbladder wall and the gallbladder was markedly distended. He underwent an uneventful laparoscopic cholecystectomy. Postoperatively mainly complained of incisional pain in the right upper quadrant but was able to tolerate a regular diet by the evening of postop day 0. On postop day 1 he is tolerating regular diet with only minimal discomfort without nausea or vomiting. He will be discharged to home. He was asked to avoid eating fatty, fried foods for the next month. He should also avoid lifting greater than 10 lb for the next 2 weeks. He will call our office tomorrow to set up a a follow-up postoperative appointment for wound check. He may remove the plastic dressings in 3 days and may shower with Or without the dressings on. he should call the office for fever, chills, nausea, vomiting, increased abdominal pain or other concerns. Status at Discharge Functional status at discharge: independent ambulation Overall status at discharge: patient is back to baseline Time Spent with Patient Time attestation: Total time managing care of this patient today ____ minutes. Discharge coordination time: Less than 30 minutes Quality: Safe Use of Opioids Does Pt have an Active Cancer Diagnosis on the Problem List?: No Quality: Stroke Does the patient have a stroke diagnosis?: No Physical Exam Vital Signs: Vital Signs: Last Vital Signs Temp 98 F 02/04/23 07:10 Pulse 64 02/04/23 07:10 Resp 18 02/04/23 07:10 BP 114/66 02/04/23 07:10 Pulse Ox 98 02/04/23 07:10 O2 Del Method Room Air 02/04/23 07:10 O2 Flow Rate 2 02/02/23 23:44 BMI result Body Mass Index 33.1 Const: General: healthy appearing and comfortable Nutritional Appearance: well nourished Orientation/consciousness: patient oriented x3 Limitations: no limitations HEENT: Head: Yes normocephalic and Yes atraumatic Eyes: Sclerae: sclerae normal GI: Other: Trocar incisions are clean, dry, and intact without redness or discharge. Abdomen is otherwise soft and nontender. Skin: Other: Warm, dry, no rash Neuro: General: patient oriented x3 Extrem: Other: no cyanosis, clubbing or edema. DS: Data Data Completed and Pending Pending studies at discharge: Pending at discharge 02/03/23 10:37 Surgical [PTH] Routine Labs on day of discharge: Preliminary micro results at discharge 02/03/23 04:35 Blood Culture - Preliminary Blood - Venous No growth after 24 hours. 02/03/23 03:51 Blood Culture - Preliminary Blood - Venous No growth after 24 hours. Discharge Plan Discharge Anticipated Discharge Date/Time: 02/04/23 08:43 Patient Disposition: Home, Self-Care Referrals: Eloy Lennon MD [Physician] - 1 Week [facility] [Primary Care Provider] - 1 Week Discharge Medications: New ondansetron 4 mg tablet,disintegrating 4 mg PO Q6-8H PRN (Reason: nausea and vomiting) Qty: 7 0RF oxycodone 5 mg Tablet 5 mg PO Q6H PRN (Reason: Pain, Moderate (Pain Scale 4-6) 4 Days Qty: 15 0RF Rx Instructions: Partial Fill upon patient request. Continued multivitamin Tablet 1 tab PO DAILY calcium carbonate 500 mg calcium (1,250 mg) Tablet,Chewable 500 mg PO DAILY PRN (Reason: Heartburn) Discharge Orders: Discharge Order (Routine); Ordered 02/04/23 Ordered By: Eloy Lennon Diet: Low fat, low cholesterol Activity on Discharge: No heavy lifting Stand Alone Forms: Patient Portal Discharge page Activity Restrictions/Additional Instructions: No lifting > 10 pounds for 2 weeks No driving for one week Ice to the incision x 24 hours Remove dressing in 3 days Follow up in office in one week. Care Plan Goals: Return to normal activity and diet Health Concerns: abdominal pain right upper quadrant, gallstone Plan of Treatment: laparoscopic cholecystectomy on 02/03/2023 Assessment: acute cholecystitis due to cholelithiasis Patient Instructions: Laparoscopic Cholecystectomy (DC)
--- NOTE | 2023-02-04 08:50 | MHC.CM.PN ---
PT WILL DC HOME TODAY WITH NO SERVICES. FAMILY TO TRANSPORT
[2023-02-04] MEDS: oxyCODONE HCl Immed Release 5 MG TABLET PO (10:01)
== END 2023-02-04 11:11 | disposition home or self-care (01) ==
LOC: HO.ED 02-03 01:52 → HO.EDOVER 02-03 04:07 → HO.S3 02-03 04:31
PROVIDERS: Emergency Medicine; Admitting Provider Surgery; Emergency Provider Internal Medicine; PCP Internal Medicine; Visit Provider Surgery
PROC: 0FT44ZZ Resection of Gallbladder, Percutaneous Endoscopic Approach (ICD-10-PCS; CPT 47562; principal; 2023-02-03 09:00)
DX: K80.00 Calculus of gallbladder with acute cholecystitis without obstruction (principal); Z20.822 Contact with and (suspected) exposure to COVID-19
CPT/HCPCS: 47562; 36415; 74176; 76705; 80053; 81003; 83605; 83690; 85025; 87040; 87635; 88304; 96361; 96365; 96375; 99285; J0696; J1100; J1170; J1885; J2250; J2270; J2405; J3010

== ENCOUNTER → 2023-02-16 09:13 | Outpatient (BNVA) | payer BC, SELFPAY | PROVIDERS: PCP Internal Medicine; Referring Provider Internal Medicine; Visit Provider Surgery ==